=== PATIENT | male | born 1975 | race Caucasian/White ===

== ENCOUNTER 2022-03-11 09:44 | Outpatient (REF) | payer OTHER, SELFPAY ==
--- NOTE | ~2022-03-11 | CT_ITS ---
EXAMINATION: CT SINUS WITHOUT CONTRAST CLINICAL INFORMATION: Deviated septum COMPARISON: None TECHNIQUE: Axial 2 mm thin and reformatted 2 mm thin sagittal and coronal images of sinuses were obtained This CT examination was performed using dose optimization techniques as appropriate, variously including the following: *Automated exposure control *Adjustment of mA and/or kV according to patient size (this includes techniques or standardized protocols for targeted exams where dose is matched to indication/reason for exam; i.e. extremities or head) *Use of iterative reconstruction technique DLP: 123 mGy-cm FINDINGS: FRONTAL SINUSES AND DRAINAGE PATHWAYS: Unremarkable. MAXILLARY SINUSES AND DRAINAGE PATHWAYS: There is a small polyp or retention cyst in bilateral maxillary sinuses. Bilateral ostiomeatal complexes are widely patent. ETHMOID SINUSES: Normal. The ethmoid roofs are symmetric, with olfactory fossa depth of 0.4 cm on the right and 0.5 cm on the left. SPHENOID SINUSES AND DRAINAGE PATHWAYS: Normal. The sphenoid ostia are patent. The carotid canals are covered by bone. NASAL CAVITY/NASOPHARYNX: The nasal cavity is clear. There is no nasal septal deviation/spurring. The nasopharynx is symmetric. ADDITIONAL RELEVANT FINDINGS: No periapical disease is seen. The TMJs articulate normally. The orbits and skull base soft tissues are unremarkable. The middle ear cavities and mastoid air cells are clear. Limited evaluation demonstrates no acute intracranial findings. CT/CT sinus wo con IMPRESSION: Small polyp versus retention cyst bilateral maxillary sinuses. Rest of the CT sinuses unremarkable.
== END 2022-03-11 09:45 | disposition home or self-care (01) ==
LOC: HO.CT 09:44
PROVIDERS: PCP Internal Medicine; Visit Provider Otolaryngology
DX: J33.1 Polypoid sinus degeneration (principal); J34.2 Deviated nasal septum
CPT/HCPCS: 70486

== ENCOUNTER 2025-06-14 14:15 | Outpatient (REF) | payer OTHER, SELFPAY ==
--- OUTSIDE RECORDS SUMMARY | 2014-06-28 | XMS_ITS | Encounter Summary ---
Author Organization [facility] Address [address] [facility] [address] [place] [phone] Phone Care Team Providers Care Route Jumper Name Role Phone Unavailable Primary Care Provider Unavailabl e Encounter Details Date Type Department Care Team (Late st Contact Info) Description 06/28/2014 Hospital Encounter [facility] [address] [place] [address] Endy Ascencio MD, PhD [address] [place] [phone] [email or web address] Social History Tobacco Use Types Packs/Day Years Used Date Smoking Tobacco: Never Education Answer Date Recorded Are you interested in more education? Not on geovany e 01/22/2023 Are you concerned about learning? Not on file 01/22/2023 No 01/22/2023 No 01/22/2023 Digital Access Answer Date Recorded No 02/22/2023 No 02/22/2023 No 02/22/2023 Reliable internet access at home? Not on file 02/22/2023 Device with a working camera? Not on file Sex and Gender Information Value Date Recorded Sex Assigned at Not on file Legal Sex Male 9:00 AM EDT Gender Identity Not on file Sexual Orientation Not on file documented as of this encounter Plan of Treatment Not on file documented as of this encounter Procedures Procedure Name Priority Date/Time Associated Diagnosis Comments US ABDOMEN OUTSIDE (NO INTERPRETATION) Routine 06/28/2014 12:00 AM EDT documented in this encounter Results * US Abdomen Outside (No Interpretation) (06/28/2014 12:00 AM EDT) Narrative [facility] IMG INTERFACES - 09/15/2016 11:59 AM EST This study is for PACS storage only and not for interpretation. us Endy Ascencio MD, PhD IMG OUTSIDE IMAGING W/OU T INTERPRETATION Final Result [facility] IMG INTERFACES documented in this encounter Visit Diagnoses Not on filedocumented in this encounter Additional Source Comments The information contained in this document represents components of the legal health record. It is not the complete legal health record.[facility]
--- OUTSIDE RECORDS SUMMARY | 2014-09-26 01:00 | XMS_ITS | Encounter Summary ---
Author Organization [facility] Address [address] [place] [phone] Phone Care Team Providers Care Top And Seat Cover Fitter Name Role Phone Unavailable Primary Care Provider Unavailabl e Reason for Visit * MRI/CAT Scan - Closed Specialty Diagnoses / Procedures Referred By Contvaleriy t Referred To Contact Procedures CT Abdomen Outside (No Interpretation) Endy Ascencio MD, PhD [address] [place] [phone] Phone: tel: fax: mailto:[email or web address] Referral ID Status Reason Start Date Expiration Date Visits Re quested Visits Authorized [id number] Closed 09/15/2016 09/15/2017 1 1 Encounter Details Date Type Department Care Team (Late st Contact Info) Description 09/26/2014 Hospital Encounter [facility] [address] [place] [id number] Endy Ascencio MD, PhD [address] [place] [phone] [email or web address] Social History Tobacco Use Types Packs/Day Years [...] Procedure Name Priority Date/Time Associated Diagnosis Comments CT ABDOMEN OUTSIDE (NO INTERPRETATION) Routine 09/26/2014 12:00 AM EST documented in this encounter Results * CT Abdomen Outside (No Interpretation) (09/26/2014 12:00 AM EST) Narrative [facility] IMG INTERFACES - 09/15/2016 11:59 AM EST This study is for PACS storage only and not for interpretation. us Endy Ascencio MD, PhD IMG OUTSIDE IMAGING W/OU T INTERPRETATION Final Result [facility] IMG INTERFACES documented in this encounter Visit Diagnoses Not on filedocumented in this encounter Additional Source Comments The information contained in this document represents components of the legal health record. It is not the complete legal health record.[facility]
--- NOTE | 2025-06-14 14:19 | EMG_ITS ---
Chief complaint: At least 2 years of numbness and paresthesias in bilateral lateral thighs. Denies any lower back pain. Denies any symptoms or numbness in both feet. Reason for referral: Evaluate for radiculopathy Referred by: Romain PRICE Procedure done: Bilateral lower extremity NCS/EMG Precautions and/or limitations: None The limb temperature was monitored continuously and remained between 32-36 degrees C during the performance of the NCS. Nerve Conduction Studies Anti Sensory Summary Table ?Stim Site NR Onset (ms) Norm Onset (ms) Peak (ms) Norm Peak (ms) O-P Amp (?V) Norm O-P Amp Site1 Site2 Delta-0 (ms) Dist (cm) Joey (m/s) Norm Joey (m/s) Left Sural Anti Sensory (Lat Mall) Calf ? 2.4 3.1 <4.0 8.7 >5.0 Calf Lat Mall 2.4 14.0 58 Right Sural Anti Sensory (Lat Mall) Calf ? 2.5 3.2 <4.0 14.2 >5.0 Calf Lat Mall 2.5 14.0 56 Motor Summary Table ?Stim Site NR Onset (ms) Norm Onset (ms) O-P Amp (mV) Norm O-P Amp iAmp (mV) Amp (1st) (%) Site1 Site2 Delta-0 (ms) Dist (cm) Joey (m/s) Norm Joey (m/s) Left Peroneal Motor (Ext Dig Brev) Ankle ? 4.0 <4.0 6.2 >2.5 8.5 100.0 Ankle Ext Dig Brev 4.0 0.0 B Fib ? 11.7 6.8 9.0 109.7 B Fib Ankle 7.7 36.0 47 >40 Poplt ? 12.5 6.6 8.7 106.5 Poplt B Fib 0.8 4.5 56 >40 Right Peroneal Motor (Ext Dig Brev) Ankle ? 4.0 <4.0 7.2 >2.5 8.9 100.0 Ankle Ext Dig Brev 4.0 0.0 B Fib ? 10.9 6.7 8.0 93.1 B Fib Ankle 6.9 34.0 49 >40 Poplt ? 12.0 6.6 7.9 91.7 Poplt B Fib 1.1 5.0 45 >40 Left Tibial Motor (Abd Caceres Brev) Ankle ? 3.8 <5 7.3 >2.5 10.6 100.0 Ankle Abd Caceres Brev 3.8 0.0 Knee ? 12.6 7.5 10.8 102.7 Knee Ankle 8.8 41.0 47 >40 Right Tibial Motor (Abd Caceres Brev) Ankle ? 3.9 <5 9.9 >2.5 14.5 100.0 Ankle Abd Caceers Brev 3.9 0.0 Knee ? 12.5 7.5 10.8 75.8 Knee Ankle 8.6 40.0 47 >40 EMG ?Side Muscle Nerve Root Ins Act Fibs Psw Amp Dur Poly Recrt Int Pat Comment Right AbdHallucis MedPlantar S1-2 Nml Nml Nml Nml Nml 0 Nml Complete Right AntTibialis Dp Br Peron L4-5 Nml Nml Nml Nml Nml 0 Nml Complete Right PostTibialis Tibial L5, S1 Nml Nml Nml Nml Nml 0 Nml Complete Right MedGastroc Tibial S1-2 Nml Nml Nml Nml Nml 0 Nml Complete Right VastusMed Femoral L2-4 Nml Nml Nml Nml Nml 0 Nml Complete Left AbdHallucis MedPlantar S1-2 Nml Nml Nml Nml Nml 0 Nml Complete Left AntTibialis Dp Br Peron L4-5 Nml Nml Nml Nml Nml 0 Nml Complete Left PostTibialis Tibial L5, S1 Nml Nml Nml Nml Nml 0 Nml Complete Left MedGastroc Tibial S1-2 Nml Nml Nml Nml Nml 0 Nml Complete Left VastusMed Femoral L2-4 Nml Nml Nml Nml Nml 0 Nml Complete Paraspinal EMG ?Side Muscle Nerve Root Ins Act Fibs Psw Comment Right Lumbar Upper Rami Nml Nml Nml Right Lumbar Mid Rami Nml Nml Nml Right Lumbar Lower Rami Nml Nml Nml Left Lumbar Upper Rami Nml Nml Nml Left Lumbar Mid Rami Nml Nml Nml Left Lumbar Lower Rami Nml Nml Nml FINDINGS: All motor and sensory nerves tested showed normal latencies, amplitudes and conduction velocities. Concentric needle EMG was performed in selected muscles of the bilateral lower extremity and lumbar paraspinals. Study did not reveal signs of electric abnormalities as shown in the table above. IMPRESSION: 1. This is a normal study. 2. There is no electrodiagnostic evidence for peroneal neuropathy, tibial neuropathy, lumbosacral plexopathy, lumbar radiculopathy, or peripheral neuropathy. CLINICAL COMMENT: Meralgia paresthetica is within the differential, although it is technically difficult to test during EMG/NCS. We have at least ruled out lumbar radiculopathy or peripheral neuropathy. Thank you for your kind referral. Sonal Beth MD, BRITTANI Board Certified, [employer] Board [employer] Medicine and Rehabilitation (ABPMR) Board Certified, [employer] Board of Electrodiagnostic Medicine (ABEM) CODIN [phone] x 2 MTDD
--- OUTSIDE RECORDS SUMMARY | 2025-06-14 16:07 | XMS_ITS | Clinical Summary ---
Author Organization [address] [place] [address] [place] [phone] Phone Care Team Providers Care Ceo & Co Founder Name Role Phone Unavailable Primary Care Provider Unavailabl e Encounters Date Type Department Care Team Description 05/07/2025 9:24 AM EDT - 05/07/2025 11:59 PM EDT Hospital Encounter [facility] [address] [place] [phone] Unilateral primary osteoarthritis, right knee Discharge Disposition: Home or Self Care from Last 3 Months Social History Tobacco Use Types Packs/Day Years Used Date Smoking Tobacco: Never Assessed Sex and Gender Information Value Date Recorded Sex Assigned at Not on file Legal Sex Male 12:34 AM EST Gender Identity Not on file Sexual Orientation Not on file Plan of Treatment Health Maintenance Due Date Last Done Comments DTaP,Tdap,and Td Vaccines (1 - Tdap) 1993 Hepatitis B Vaccines (1 of 3 - 19+ 3-dose series) 1993 Cholesterol Screening (Lipid Panel) 08/30/2022 Colorectal Cancer Screening: Colonoscopy 08/30/2022 HIV Screening 08/30/2022 Hepatitis C Screening 08/30/2022 Social Influencers of Health Screening 08/30/2022 Pneumococcal Vaccine: 50+ Years (1 of 1 - PCV) 2024 Zoster Vaccines (1 of 2) 2024 Depression Screening 09/27/2024 COVID-19 Vaccine ( - season) 2025 10/04/2022, 10/25/2021, 02/11/2021, Additional history exists Influenza Vaccine (#1) 2025 HIB Vaccines Aged Out No longer eligi ble based on patient's age to complete this topic HPV Vaccines Aged Out No longer eligi ble based on patient's age to complete this topic Hepatitis A Vaccines Aged Out No long er eligible based on patient's age to complete this topic IPV Vaccines Aged Out No longer eligi ble based on patient's age to complete this topic MMR Vaccines Aged Out No longer eligi ble based on patient's age to complete this topic Meningococcal ACWY Vaccine Aged Out N o longer eligible based on patient's age to complete this topic Meningococcal B Vaccine Aged Out No l onger eligible based on patient's age to complete this topic RSV Immunization Patients Under 20 months Aged Out No longer eligible based on patient's age to complete this topic Varicella Vaccines Aged Out No longer eligible based on patient's age to complete this topic Procedures Procedure Name Priority Date/Time Associated Diagnosis Comments XR KNEE 4+ VIEWS RIGHT Routine 05/07/2025 9:42 AM EDT Unilateral primary osteoarthritis, right knee from Last 3 Months Results * XR Knee 4+ Views Right (05/07/2025 9:42 AM EDT) Anatomical Region Laterality Modality Lower Extremities, Knee Right [facility] 05/07/2025 9:58 AM EDT Impressions 05/07/2025 9:58 AM EDT Impression: Osteoarthritis. Earl PRICE ([id number]) -------- FINAL REPORT -------- Dictated By: Rebecca Gibson Dictated Date: 05/07/2025 09:58 ET Assigned Physician: Rebecca Gibson Reviewed and Electronically Signed By: Rebecca Gibson Signed Date: 05/07/2025 09:58 ET Workstation ID: [id number] Transcribed By: Self Edit Transcribed Date: 05/07/2025 09:58 ET Narrative 05/07/2025 9:58 AM EDT History: Right knee pain. Comparison: No comparison imaging at this institution. Findings: AP, oblique and lateral views of the right knee. There is moderate to severe narrowing of the medial femorotibial joint space, with marginal osteophytes. Bony hypertrophy of the tibial spines is noted. There are superior and inferior patellar enthesophytes. No fractures or osseous destructive lesions are seen. No joint effusion is identified. The overlying soft tissues are unremarkable. Procedure Note Rebecca Gibson MD - 05/07/2025 History: Right knee pain. Comparison: No comparison imaging at this institution. Findings: AP, oblique and lateral views of the right knee. There is moderate to severe narrowing of the medial femorotibial jointspace, with marginal osteophytes. Bony hypertrophy of the tibial spines isnoted. There are superior and inferior patellar enthesophytes. No fractures or osseous destructive lesions are seen. No joint effusion isidentified. The overlying soft tissues are unremarkable. IMPRESSION: Impression: Osteoarthritis. Telerad ALBERT ([id number]) -------- FINAL REPORT -------- Dictated By: Rebecca Gibson Dictated Date: 05/07/2025 09:58 ET Assigned Physician: Rebecca Gibson Reviewed and Electronically Signed By: Rebecca Gibson Signed Date: 05/07/2025 09:58 ET Workstation ID: [id number] Transcribed By: Self Edit Transcribed Date: 05/07/2025 09:58 ET Romain PRICE IMG XR PROCEDURES Final Result from Last 3 Months Insurance [facility]
--- OUTSIDE RECORDS SUMMARY | 2025-06-14 16:07 | XMS_ITS | Clinical Summary ---
Author Organization [facility] Address [address] [place] [phone] Phone Care Team Providers Care Nicu Rn Name Role Phone Spencer Resendez MD Primary Care Provider + Social History Tobacco Use Types Packs/Day Years [...] on file Sexual Orientation Not on file Last Filed Vital Signs Vital Sign Reading Time Taken Comments Blood Pressure 135/86 09/15/2016 11:52 AM EST Pulse 76 09/15/2016 11:52 AM EST Temperature 36 C (96.8 F) 09/15/2016 11:52 AM EST Respiratory Rate 18 09/15/2016 11:52 AM EST Oxygen Saturation - - Inhaled Oxygen Concentration - - Weight 107.5 kg (237 lb) 09/15/2016 11:52 AM EST Height - - Body Mass Index - - Plan of Treatment Health Maintenance Due Date Last Done Comments Adult Td,Tdap Booster 1974 LIPID PANEL 1974 DEPRESSION SCREENING 1986 HEPATITIS C SCREENING 1992 HIV ONE-TIME SCREENING (18-6 5 YEARS) 1992 SMOKING STATUS SCREENING (On ce After 26 Yrs) 2000 COLOGUARD 2019 COLONOSCOPY 2019 COLORECTAL CANCER SCREENING 2019 FIT TEST 2019 FOBT 2019 SIGMOIDOSCOPY 2019 VIRTUAL COLONOSCOPY 2019 PNEUMOCOCCAL VACCINES (50+ years) (1 of 1 - PCV) 2024 ZOSTER VACCINES (1 of 2) 2024 INFLUENZA VACCINE (#1) 2025 COVID-19 VACCINE (3 - 2024-2 6 season) 2025 02/11/2021, 01/21/2021 HEPATITIS A VACCINES Aged Out No long er eligible based on patient's age to complete this topic HIB VACCINES Aged Out No longer eligi ble based on patient's age to complete this topic MENINGOCOCCAL VACCINES (ACWY) Aged Out No longer eligible based on patient's age to complete this topic MENINGOCOCCAL VACCINES (B) Aged Out N o longer eligible based on patient's age to complete this topic Medical Devices Not on file Insurance CIGNA PPO CIGNA PPO CIGNA PPO CIGNA PPO CIGNA PPO CIGNA PPO CIGNA PPO CIGNA PPO CIG[employer] PPO Care Teams Nicu Rn Relationship Specialty Start Date End Date Spencer Resendez MD PCP - General Internal Medicine 07/08/16 Additional Source Comments The information contained in this document represents components of the legal health record. It is not the complete legal health record.[facility]
--- OUTSIDE RECORDS SUMMARY | 2025-06-14 16:07 | XMS_ITS | Encounter Summary ---
Author Organization [facility] Address [address] [facility] [address] [place] [phone] Phone Care Team Providers Care Organizational Consultant Name Role Phone Spencer Resendez MD Primary Care Provider + Encounter Details Date Type Department Care Team (Late st Contact Info) Description 09/15/2016 Procedure Pass [facility] [address] [place] [address] Social History Tobacco Use Types Packs/Day Years Used Date Smoking Tobacco: Never Sex and Gender Information Value Date Recorded Sex Assigned at Not on file Legal Sex Male 9:00 AM EDT Gender Identity Not on file Sexual Orientation Not on file documented as of this encounter Plan of Treatment Not on file documented as of this encounter Visit Diagnoses Not on filedocumented in this encounter Care Teams Organizational Consultant Relationship Specialty Start Date End Date Spencer Resendez MD PCP - General Internal Medicine 07/08/16 documented as of this encounter Additional Source Comments The information contained in this document represents components of the legal health record. It is not the complete legal health record.[facility]
== END 2025-06-14 14:16 | disposition home or self-care (01) ==
LOC: HO.NEURO 14:15
PROVIDERS: PCP Internal Medicine; Visit Provider Physician Assistant
DX: G60.3 Idiopathic progressive neuropathy (principal); M54.16 Radiculopathy, lumbar region
CPT/HCPCS: 95885; 95909

== ENCOUNTER → 2025-06-14 14:19 | Outpatient (BNV) | payer OTHER, SELFPAY | PROVIDERS: PCP Internal Medicine; Visit Provider Physical Medicine & Rehabilitation | DX: R20.0 Anesthesia of skin (principal); R20.2 Paresthesia of skin | CPT/HCPCS: 95886; 95911 ==